=== PATIENT | female | born 1970 | race Caucasian/White ===

== ENCOUNTER 2020-10-11 07:55 | Emergency (ER) | payer OTHER ==
[2020-10-11 08:04] VITALS: BP 155/94; PULSE 67; TEMP 97.7; BMI 24.4
[2020-10-11] MEDS ORDERED: METOCLOPRAMIDE HCL INJECTION 10 MG/2 ML VIAL IVPUSH ONE (08:37)
[2020-10-11] MEDS ORDERED: KETOROLAC TROMETHAMINE 30 MG/1 ML VIAL IVPUSH ONE (08:37)
[2020-10-11] MEDS ORDERED: SODIUM CHLORIDE 0.9% 500 ML INFUS.BAG IV ONE (08:37)
[2020-10-11] MEDS ORDERED: METOCLOPRAMIDE HCL INJECTION 10 MG/2 ML VIAL ONE (09:33)
[2020-10-11] MEDS ORDERED: KETOROLAC TROMETHAMINE 30 MG/1 ML VIAL ONE (09:33)
[2020-10-11 10:01] LABS: BASO % 0.3 % (0-2.0); EOS % 1.5 % (0-4.5); HEMATOCRIT 42.2 % (32.4-45.2); HEMOGLOBIN 13.5 GM/dL (10.7-15.3); LYMPH % 16.5 % (8-40); MCH 26.1 pg (25.7-33.7); MEAN CELL VOLUME 81.6 fl (80-96); MONO % 4.5 % (3.8-10.2); NEUT % 77.2 % (42.8-82.8); PLATELET COUNT 332 10^3/uL (134-434); RBC 5.17 M/mm3 (3.60-5.2); RDW 15.5 % (11.6-15.6); WHITE BLOOD COUNT 9.8 K/mm3 (4.0-10.0)
[2020-10-11 10:28] LABS: CALCIUM 8.6 mg/dL (8.5-10.1)
[2020-10-11 10:33] LABS: CREATININE 0.5 mg/dL (0.55-1.3)
[2020-10-11 10:34] LABS: BILIRUBIN,TOTAL 0.2 mg/dL (0.2-1); TOT PROT 7.9 g/dl (6.4-8.2)
[2020-10-11 10:36] LABS: ALBUMIN 3.6 g/dl (3.4-5.0)
[2020-10-11 11:09] LABS: BLOOD UREA NITROGEN 18.6 mg/dL (7-18)
== END 2020-10-11 11:56 | disposition home or self-care (01) ==
LOC: JER 07:55
PROC: 3E0333Z Introduction of Anti-inflammatory into Peripheral Vein, Percutaneous Approach (ICD-10-PCS; principal; 2020-10-11)
PROC: 3E033GC Introduction of Other Therapeutic Substance into Peripheral Vein, Percutaneous Approach (ICD-10-PCS; 2020-10-11)
DX: G44.89 Other headache syndrome (principal)
CPT/HCPCS: 36415; 80053; 85025; 99284-25

== ENCOUNTER 2021-08-24 09:35 | Emergency (ER) | payer OTHER ==
[2021-08-24 09:48] VITALS: BP 151/91; PULSE 69; TEMP 97.7; BMI 24.8
[2021-08-24] MEDS ORDERED: KETOROLAC TROMETHAMINE 30 MG/1 ML VIAL IM ONE (10:47)
[2021-08-24] MEDS ORDERED: KETOROLAC TROMETHAMINE 30 MG/1 ML VIAL ONE (11:39)
== END 2021-08-24 13:03 | disposition home or self-care (01) ==
LOC: JERFT 09:35 → JER 09:35 → JERFT 13:03
PROC: 3E023GC Introduction of Other Therapeutic Substance into Muscle, Percutaneous Approach (ICD-10-PCS; principal; 2021-08-24)
DX: M54.2 Cervicalgia (principal)
CPT/HCPCS: 70490-TC; 99284-25